=== PATIENT | female | born 1980 | race Caucasian/White ===

== ENCOUNTER → 2017-12-11 | Outpatient (CLI) | payer BC ==
[~2017-12-11] MED LIST: D50KC PO; FRS325T PO; IBP600T1 PO; LEVO150T54 PO; LEVO175T2 PO; LIOTHYSO5 PO; PNT40TEC PO; PREN-115 PO; THYR180T2 PO; VITAMIN B12 IM
== END ==
LOC: CARD 13:57
PROVIDERS: ATTEND Physician Assistant
DX: R07.9 Chest pain, unspecified (principal); I10 Essential (primary) hypertension; R00.2 Palpitations
CPT/HCPCS: 93017